=== PATIENT | male | born 1930 | race Caucasian/White ===

== ENCOUNTER 2018-11-28 15:42 | Emergency (ER) | payer MEDICARE, BC ==
[2018-11-28] MEDS ORDERED: ASPIRIN 81 MG PO STA (16:19)
--- NOTE | 2018-11-28 16:25 | ED ---
General Adult HPI - General Chief complaint: Chest Pain Stated complaint: Chest Pains Time Seen by Provider: 11/28/18 16:07 Source: patient Mode of arrival: wheelchair Limitations: no limitations - History of Present Illness Initial comments: Patient presents to the ED with his daughter and granddaughter for evaluation. Patient states that he has had intermittent, dull, diffuse upper chest pain for the past 2 days or so. Patient states that he last had this pain while at rest this morning, and he denies having any pain or symptoms currently. Patient denies trauma or injury, radiation of his pain, headache, focal neuro deficit, neck/arm/jaw/back pain, pleuritic pain, dyspnea, fever or chills, cough or cold symptoms, nausea/vomiting/diaphoresis, abdominal pain, urinary symptoms, leg or calf swelling or tenderness, or any other symptoms or complaints. Patient's cardiac risk factors include hypertension, hyperlipidemia and a history of smoki ng. - Related Data Home Medications Medication Instructions Recorded Confirmed ALPRAZolam [Xanax] 0.25 mg PO DAILY PRN 11/28/18 11/28/18 Atorvastatin Calcium [Lipitor] 40 mg PO HS 11/28/18 11/28/18 Indomethacin [Indocin] 50 mg PO TID 11/28/18 11/28/18 Levothyroxine Sodium [Synthroid] 50 mcg PO DAILY 11/28/18 11/28/18 Triamterene-Hctz 37.5-25Mg 1 cap PO DAILY 11/28/18 11/28/18 [Dyazide 37.5-25 Capsule] amLODIPine [Norvasc] 5 mg PO DAILY 11/28/18 11/28/18 Allergies Allergy/AdvReac Type Severity Reaction Status Date / Time No Known Allergies Allergy Verified 11/28/18 15:53 Review of Systems ROS Statement: Those systems with pertinent positive or pertinent negative responses have been documented in the HPI. ROS Other: All systems not noted in ROS Statement are negative. Past Medical History Past Medical History: Hyperlipidemia, Hypertension Additional Past Medical History / Comment(s): gout, hypothyroidism History of Any Multi-Drug Resistant Organisms: None Reported Past Psychological History: Anxiety Smoking Status: Former smoker Past Alcohol Use History: None Reported Past Drug Use History: None Reported General Exam Limitations: no limitations General appearance: alert, in no apparent distress Head exam: Present: atraumatic, normocephalic Eye exam: Present: normal appearance, EOMI ENT exam: Present: mucous membranes moist Neck exam: Present: other (Trachea is in midline) Respiratory exam: Present: normal lung sounds bilaterally. Absent: respiratory distress, wheezes, rales, rhonchi, chest wall tenderness Cardiovascular Exam: Present: regular rate, normal rhythm, normal heart sounds, other (Normal radial pulses bilaterally) GI/Abdominal exam: Present: soft. Absent: distended, tenderness, guarding Extremities exam: Absent: tenderness, pedal edema, calf tenderness Neurological exam: Present: alert, oriented X3. Absent: motor sensory deficit Psychiatric exam: Present: normal affect, normal mood Skin exam: Present: warm, dry, intact, normal color Course Vital Signs 11/28/18 11/28/18 11/28/18 15:45 16:30 17:00 Temperature 98.1 F Pulse Rate 83 71 67 Respiratory 18 18 24 Rate Blood Pressure 162/80 174/93 164/80 O2 Sat by Pulse 99 97 98 Oximetry EKG Findings - EKG Comments: EKG Findings:: Normal sinus rhythm, a single PVC is seen, ventricular rate of 72 bpm, normal VT and QRS intervals, normal QT interval, normal axis, no ST or T- wave abnormality Medical Decision Making - Medical Decision Making Patient's EKG, chest x-ray and labs are all fairly unremarkable, including a negative troponin. Patient denies having any chest pain, dyspnea or symptoms at all currently. Patient denies having pleuritic pain, and he denies having any leg or calf swelling or tenderness. Patient has no lower extremity swelling or tenderness on exam. Patient is not hypoxic, tachycardic or tachypnea. I think that pulmonary embolism is very unlikely. Given the patient's cardiac risk factors, I have discussed hospital admission for cardiac rule out/evaluation with the patient and his family. Patient and family decline hospital admission at this time, understanding the risks of doing so, and they agree to have the patient follow up closely with his PCP for further evaluation. Return and follow-up instructions were clearly expanding to the patient and his family. Patient was instructed to return to the ED should he develop new or worsening pain, constant pain, shortness of breath, vomiting, fever, feeling dizzy or faint, or new or worsening symptoms. They all feel comfortable with this plan. - Lab Data Result diagrams: 11/28/18 15:58 11/28/18 15:58 Lab Results 11/28/18 11/28/18 11/28/18 Range/Units 15:58 15:58 15:58 WBC 10.1 (3.8-10.6) k/uL RBC 4.26 L (4.30-5.90) m/uL Hgb 14.0 (13.0-17.5) gm/dL Hct 40.4 (39.0-53.0) % MCV 94.9 (80.0-100.0) fL MCH 32.9 (25.0-35.0) pg MCHC 34.6 (31.0-37.0) g/dL RDW 11.9 (11.5-15.5) % Plt Count 320 (150-450) k/uL Neutrophils % 74 % Lymphocytes % 15 % Monocytes % 5 % Eosinophils % 3 % Basophils % 0 % Neutrophils # 7.5 (1.3-7.7) k/uL Lymphocytes # 1.5 (1.0-4.8) k/uL Monocytes # 0.5 (0-1.0) k/uL Eosinophils # 0.3 (0-0.7) k/uL Basophils # 0.0 (0-0.2) k/uL PT 9.8 (9.0-12.0) sec INR 0.9 (<1.2) APTT 28.3 (22.0-30.0) sec Sodium 140 (137-145) mmol/L Potassium 4.8 (3.5-5.1) mmol/L Chloride 104 (98-107) mmol/L Carbon Dioxide 27 (22-30) mmol/L Anion Gap 9 mmol/L BUN 36 H (9-20) mg/dL Creatinine 1.64 H (0.66-1.25) mg/dL Est GFR (CKD-EPI)AfAm 43 (>60 ml/min/1.73 sqM) Est GFR (CKD-EPI)NonAf 37 (>60 ml/min/1.73 sqM) Glucose 99 (74-99) mg/dL Calcium 9.5 (8.4-10.2) mg/dL Magnesium 2.2 (1.6-2.3) mg/dL Total Bilirubin 0.4 (0.2-1.3) mg/dL AST 26 (17-59) U/L ALT 28 (21-72) U/L Alkaline Phosphatase 107 (38-126) U/L Troponin I (0.000-0.034) ng/mL Total Protein 7.0 (6.3-8.2) g/dL Albumin 4.2 (3.5-5.0) g/dL 11/28/18 Range/Units 15:58 WBC (3.8-10.6) k/uL RBC (4.30-5.90) m/uL Hgb (13.0-17.5) gm/dL Hct (39.0-53.0) % MCV (80.0-100.0) fL MCH (25.0-35.0) pg MCHC (31.0-37.0) g/dL RDW (11.5-15.5) % Plt Count (150-450) k/uL Neutrophils % % Lymphocytes % % Monocytes % % Eosinophils % % Basophils % % Neutrophils # (1.3-7.7) k/uL Lymphocytes # (1.0-4.8) k/uL Monocytes # (0-1.0) k/uL Eosinophils # (0-0.7) k/uL Basophils # (0-0.2) k/uL PT (9.0-12.0) sec INR (<1.2) APTT (22.0-30.0) sec Sodium (137-145) mmol/L Potassium (3.5-5.1) mmol/L Chloride (98-107) mmol/L Carbon Dioxide (22-30) mmol/L Anion Gap mmol/L BUN (9-20) mg/dL Creatinine (0.66-1.25) mg/dL Est GFR (CKD-EPI)AfAm (>60 ml/min/1.73 sqM) Est GFR (CKD-EPI)NonAf (>60 ml/min/1.73 sqM) Glucose (74-99) mg/dL Calcium (8.4-10.2) mg/dL Magnesium (1.6-2.3) mg/dL Total Bilirubin (0.2-1.3) mg/dL AST (17-59) U/L ALT (21-72) U/L Alkaline Phosphatase (38-126) U/L Troponin I <0.012 (0.000-0.034) ng/mL Total Protein (6.3-8.2) g/dL Albumin (3.5-5.0) g/dL - Radiology Data Radiology results: image reviewed (Chest x-ray shows an elevated right hemidiaphragm, otherwise no acute cardiopulmonary disease) Disposition Clinical Impression: Chest pain Disposition: HOME SELF-CARE Condition: Stable Instructions (If sedation given, give patient instructions): Chest Pain (ED) Additional Instructions: Return to the ER immediately should you develop new or worsening pain, constant pain, shortness of breath, a fever, vomiting, feeling dizzy or faint, or new or worsening symptoms. Is patient prescribed a controlled substance at d/c from ED?: No Referrals: Jerica Larkin MD [Primary Care Provider] - 1-2 days Time of Disposition: 17:28
[2018-11-28 16:40] LABS: Albumin 4.2 g/dL (3.5-5.0); Calcium 9.5 mg/dL (8.4-10.2); INR 0.9 (<1.2); Magnesium 2.2 mg/dL (1.6-2.3); Partial Thromboplastin Time 28.3 sec (22.0-30.0); Potassium 4.8 mmol/L (3.5-5.1); Prothrombin Time 9.8 sec (9.0-12.0); Total Bilirubin 0.4 mg/dL (0.2-1.3)
--- NOTE | 2018-11-28 16:43 | XR ---
EXAMINATION TYPE: XR chest 2V DATE OF EXAM: 11/28/2018 COMPARISON: NONE HISTORY: Chest pain TECHNIQUE: Frontal and lateral views of the chest are obtained. FINDINGS: There is no heart failure nor confluent pneumonic infiltrate. There is elevated right diap hragm. There are chest leads. Thoracic aorta is atheromatous. IMPRESSION: Elevated right diaphragm could relate to some diaphragm paralysis. No heart failure.
[2018-11-28 16:50] LABS: Basophils % (A) 0 %; Eosinophils # (A) 0.3 k/uL (0-0.7); Eosinophils % (A) 3 %; HCT 40.4 % (39.0-53.0); Lymphocytes # (A) 1.5 k/uL (1.0-4.8); Lymphocytes % (A) 15 %; MCH 32.9 pg (25.0-35.0); MCHC 34.6 g/dL (31.0-37.0); MCV 94.9 fL (80.0-100.0); Mean Platelet Volume 5.5; Monocytes # (A) 0.5 k/uL (0-1.0); Monocytes % (A) 5 %; Neutrophils # (A) 7.5 k/uL (1.3-7.7); Neutrophils % (A) 74 %; Platelet Count 320 k/uL (150-450); RBC 4.26 m/uL (4.30-5.90); RDW 11.9 % (11.5-15.5); WBC 10.1 k/uL (3.8-10.6)
[2018-11-28 18:02] VITALS: PULSE 67
[2018-11-28 18:04] VITALS: BP 158/83; RESP 16; TEMP 97
== END 2018-11-28 18:06 | disposition home or self-care (01) ==
LOC: EC 15:42
DX: R07.89 Other chest pain (principal); E78.5 Hyperlipidemia, unspecified; I10 Essential (primary) hypertension; E03.9 Hypothyroidism, unspecified; M10.9 Gout, unspecified; Z87.891 Personal history of nicotine dependence; Z79.1 Long term (current) use of non-steroidal anti-inflammatories (NSAID); Z79.890 Hormone replacement therapy; Z79.899 Other long term (current) drug therapy; Z53.20 Procedure and treatment not carried out because of patient's decision for unspecified reasons
CPT/HCPCS: 36415; 71046; 80053; 83735; 84484; 85025; 85610; 85730; 93005; 99285